=== PATIENT | male | born 1980 | race Caucasian/White ===

== ENCOUNTER → 2025-07-24 13:11 | Outpatient (BNVA) | payer SELFPAY | PROVIDERS: Visit Provider Emergency Medicine | DX: S61.011A Laceration without foreign body of right thumb without damage to nail, initial encounter (principal); W31.89XA Contact with other specified machinery, initial encounter | CPT/HCPCS: 99203 ==

== ENCOUNTER → 2025-07-26 12:26 | Outpatient (BNVA) | payer OTHER, SELFPAY | PROVIDERS: Visit Provider Emergency Medicine | DX: S61.011A Laceration without foreign body of right thumb without damage to nail, initial encounter (principal); W31.89XA Contact with other specified machinery, initial encounter; Z48.00 Encounter for change or removal of nonsurgical wound dressing | CPT/HCPCS: 99213 ==

== ENCOUNTER → 2025-07-31 14:27 | Outpatient (BNVA) | payer OTHER, SELFPAY | PROVIDERS: Visit Provider Emergency Medicine | DX: Z48.01 Encounter for change or removal of surgical wound dressing (principal); S61.011A Laceration without foreign body of right thumb without damage to nail, initial encounter; W31.89XA Contact with other specified machinery, initial encounter; Z02.79 Encounter for issue of other medical certificate | CPT/HCPCS: 99213 ==